=== PATIENT | male | born 1975 | race African-American/Black ===

== ENCOUNTER 2017-01-27 16:03 | Emergency (ER) | payer SELFPAY ==
[~2017-01-27] VITALS: Ht 193 cm; Wt 85.0 kg
[~2017-01-27 16:03] MED LIST: IBUP800T23 PO
[2017-01-27 16:05] VITALS: BP 130/80; PULSE 72; RESP 20; TEMP 98.6; O2SAT 98
--- NOTE | 2017-01-27 16:10 | PD ---
Physical Exam Date Seen by Provider: Jan 27, 2017 Time Seen by Provider: 16:09 Narrative 41 yo male here fore right wrist pain. No injury. Pain is 6/10. No other medical issues. Hurst to flex the wrist. Swelling noted. Vitals are stable in triage. Awaiting bed placement. Data Data Last Documented VS Vital Signs Date Time Temp Pulse Resp B/P Pulse Ox O2 Delivery O2 Flow Rate FiO2 01/27/17 16:05 98.6 72 20 130/80 98 Room Air [facility] Medical Record Reviewed: Yes Supervised Visit with MADELINE: Zaire Acuña Jan 27, 2017 16:10
--- NOTE | 2017-01-27 16:25 | PD ---
HPI Chief Complaint: Injury Time Seen by Provider: 16:18 Travel History International Travel<30 days: No Contact w/Intl Traveler<30days: No Traveled to known affect area: No History of Present Illness HPI 41-year-old male presents emergency department with complaint of right wrist pain and swelling that he woke up this morning. Denies known injury. Denies history of gout. Swelling to the dorsal, medial aspect over the distal aspect of the ulna bone. Denies paresthesias, loss of sensation to the affected extremity. Reports decreased range of motion secondary to pain. Denies fever, vomiting. Has not taken any medications or tried any treatments to alleviate his symptoms. Pain is aggravated with movement and palpation of the wrist. Allergies to iodine and seafood. Has no other medical complaints. No other modifying factors or associated signs and symptoms. PFSH Past Medical History Diminished Hearing: No Neurologic: Yes (HEADACHES) Migraines: Yes Social History Alcohol Use: No Tobacco Use: Yes Substance Use: No Allergies-Medications (Allergen,Severity, Reaction): Coded Allergies: Iodine (Verified Allergy, Severe, 01/27/17) Seafood (Verified Allergy, Severe, NAUSEA, DIZZY, 01/27/17) Reported Meds & Prescriptions Reported Meds & Active Scripts Active Ibuprofen 800 Mg Tab 800 Mg PO Q6H PRN Review of Systems Except as stated in HPI: all other systems reviewed are Neg Physical Exam Narrative GENERAL: Well-nourished, well-developed male patient, in no acute distress; afebrile, nontoxic-appearing SKIN: Warm and dry. HEAD: Atraumatic. Normocephalic. EYES: Pupils equal and round. No scleral icterus. No injection or drainage. ENT: Mucosa pink and moist. Airway patent. NECK: Trachea midline. CARDIOVASCULAR: Regular rate. RESPIRATORY: No accessory muscle use. GASTROINTESTINAL: Flat. MUSCULOSKELETAL: Right wrist with edema and tenderness on palpation over the head of the ulna bone; no erythema; with full range of motion. Right hand with full range of motion at all finger joints. Right upper extremity is supple and non-tense with 2+ radial pulse and sensory intact. No obvious deformities. No clubbing. No cyanosis. NEUROLOGICAL: Awake and alert. Oriented 3. No obvious cranial nerve deficits. Motor grossly within normal limits. Normal speech. PSYCHIATRIC: Appropriate mood and affect; insight and judgment normal. Data Data Last Documented VS Vital Signs Date Time Temp Pulse Resp B/P Pulse Ox O2 Delivery O2 Flow Rate FiO2 01/27/17 16:05 98.6 72 20 130/80 98 Room Air Orders Wrist, Complete ([id number]) (01/27/17 16:17) Ibuprofen (Motrin) (01/27/17 16:30) MDM Medical Decision Making Medical Screen Exam Complete: Yes Emergency Medical Condition: Yes Medical Record Reviewed: Yes Differential Diagnosis Gout, arthritis, contusion Narrative Course 41-year-old male with pain and swelling of the distal aspect of the ulna bone of the wrist. Unknown injury. Denies history of gout. Ibuprofen administered in the ER. Right wrist x-ray ordered. 1713: Right wrist x-ray with no acute findings. Wrist splint provided for support. Ibuprofen prescribed for home. Patient verbalizes understanding and agreement with treatment plan. Patient is medically cleared and stable for discharge. Discussed reasons to return to the emergency department. Instructed patient to follow up with primary care provider. Patient agrees with treatment plan. The patients vital signs are stable and the patient is stable for outpatient follow-up and treatment. Patient discharged home, stable and in no acute distress. Diagnosis Primary Impression: Pain and swelling of right wrist Referrals: Primary Care Physician Patient Instructions: General Instructions Additional Instructions: Tylenol or ibuprofen as directed and as needed to reduce pain Rest, ice, compress, and elevate extremity to decrease pain and inflammation Wrist splint for support as needed Avoid aggravating activity; increase activity as tolerated Follow-up with primary care provider Return to the emergency department immediately with worsening symptoms Med/Other Pt SpecificInfo: Prescription(s) given Scripts Ibuprofen 800 Mg [id number] Mg PO Q6HR PRN (PAIN) #30 TAB Ref 0 Prov:Katt Clemente 01/27/17 Disposition: DISCHARGE HOME Condition: Stable Katt Clemente Jan 27, 2017 16:25
[2017-01-27] MEDS ORDERED: IBUPROFEN 800 MG TAB PO ONE (16:30)
--- NOTE | 2017-01-27 17:04 | RADRPT ---
EXAM DATE/TIME: 01/27/2017 16:32 [facility] COMPARISON: WRIST RIGHT COMPLETE ([id number]), October 29, 2015, 12:09. INDICATIONS : Right wrist pain and swelling. No known trauma. MEDICAL HISTORY : None. SURGICAL HISTORY : None. ENCOUNTER: Initial ACUITY: 1 day PAIN SCORE: 6/10 LOCATION: Right wrist. FINDINGS: Three view examination of the right wrist demonstrates no soft tissue swelling, dislocation, or fract ure. The carpal bones are in normal alignment. The joint spaces are maintained. Bony mineralizatio n is normal. CONCLUSION: Negative for an acute process. Duran Briggs MD FACR on January 27, 2017 at 17:01 Board Certified Radiologist. This report was verified electronically.
[2017-01-27] MEDS ORDERED: IBUP800T23 PO (17:10)
== END 2017-01-27 17:33 | disposition home or self-care (01) ==
LOC: NEPK 16:03
DX: M25.531 Pain in right wrist (principal); M79.89 Other specified soft tissue disorders
CPT/HCPCS: 73110; 99283; L3908